=== PATIENT | male | born 1990 | race Caucasian/White ===

== ENCOUNTER 2020-06-13 09:01 | Emergency (ER) | payer BC ==
[~2020-06-13 09:01] MED LIST: LEVAQUIN500 MG PO; TYLENOL W/CODEIN1 E1 PO
[2020-06-13 09:48] LABS: HEMOGLOBIN 16.4 gm/dl (14.0-17.5); RED BLOOD COUNT 5.29 M/UL (4.20-5.50); WHITE BLOOD COUNT 6.1 K/UL (4.5-11.0)
[2020-06-13 10:26] LABS: BUN/CREATININE RATIO 13 (0-10)
[2020-06-13] MEDS ORDERED: BENTYL 20MG TAB20 MG PO (14:23)
[2020-06-13] MEDS ORDERED: ZOFRAN4 MG PO (14:23)
== END 2020-06-13 14:35 | disposition home or self-care (01) ==
LOC: ER1 09:01
PROVIDERS: Physician Assistant
DX: R10.11 Right upper quadrant pain (principal); R10.816 Epigastric abdominal tenderness; Z95.0 Presence of cardiac pacemaker
CPT/HCPCS: 76705; 80053; 82150; 83605; 83690; 85025; 87040; 96374; 96375; 99284; J2270; J2405; Q9967

== ENCOUNTER → 2020-07-06 | Outpatient (CLI) | payer BC ==
[~2020-07-06] MED LIST changes: +BENTYL 20MG TAB20 MG PO; +ZOFRAN4 MG PO
== END ==
LOC: NM 08:37
DX: R10.11 Right upper quadrant pain (principal)
CPT/HCPCS: 78226; A9537